=== PATIENT | female | born 1970 | race Caucasian/White ===

== ENCOUNTER 2018-07-15 20:03 | Emergency (ER) | payer BC ==
[~2018-07-15] VITALS: Ht 162.6 cm; Wt 85.3 kg
[~2018-07-15 20:03] MED LIST: FISH OIL; MULTIVITAMIN
--- OUTSIDE RECORDS SUMMARY | 2018-07-15 20:07 | XMS REPORT | Continuity of Care Document ---
Author Author [facility] Interface Address Unknown Phone Unavailable Problems Problem Status Onset Date Classification Date Reported Comments Source History of stress incontinence Active Problem 05/20/2015 [facility] Medications Medication Details Route Status Patient Instructions Ordering Provider Order Date Source acetaminophen IVPB 1,000 mg, Soln-IV, IV Piggyback, Once, infuse over 15 minutes, first dose 05/18/15 12:00:00 CDT, stop date 05/18/15 12:00:00 CDTMax 4gm acetaminophen in 24 hours Inactive Montes 05/18/2015 [facility] lidocaine 1% injectable solution 0.5 mL, Injection, Subcutaneous, Once, first dose 05/18/15 12:00:00 CDT, stop date 05/18/15 12:00:00 CDT Inactive [place] 05/18/2015 [facility] clindamycin 600 mg, IV Piggyback, Once, infuse over 30 minutes, first dose 05/18/15 12:00:00 CDT, stop date 05/18/15 12:00:00 CDT, Prophylaxis Inactive Thomason 05/18/2015 [facility] LR 1,000 mL 1,000 mL, IV, 100 mL/hr, start date 05/18/15 11:22:00 CDT, For Adults Inactive [place] 05/18/2015 [facility] ondansetron 4 mg=2 mL, Injection, IV Push, q30min PRN for nausea/vomiting, order duration: 2 doses, first dose 05/18/15 11:17:00 CDT, stop date Limited # of times Inactive [facility] 05/18/2015 [facility] labetalol 5 mg=1 mL, Injection, IV Push, q5min PRN for hypertension, order duration: 4 doses, first dose 05/18/15 11:17:00 CDT, stop date Limited # of times Inactive Montes 05/18/2015 [facility] morphine 2 mg=0.2 mL, Injection, IV Push, q5min PRN for pain severe (7-10), order duration: 5 doses, first dose 05/18/15 11:17:00 CDT, stop date Limited # of times Inactive Montes 05/18/2015 [facility] Allergies, Adverse Reactions, Alerts Substance Category Reaction Severity Reaction type Status Date Reported Comments Source Keflex drug allergy Anaphylaxis (disorder) Allergy [facility] Latex drug allergy Allergy [facility] Immunizations Immunization Date Given Site Status Last Updated Comments Source Results Order Name Results Value Reference Range Date Interpretation Comments Source LABORATORY Hematocrit 38.0 % 36.0 - 48.0 05/15/2015 1Reference Lab: [facility], [address] [place] [address] LABORATORY Hemoglobin 12.3 g/dL 12.0 - 16.0 05/15/2015 2Reference Lab: [facility], [address] [place] [address] LABORATORY Results Reported (05/15/2015 14:55:00) 05/15/2015 [facility] Vital Signs Vital Sign Value Date Comments Source Heart Rate 80 05/18/2015 [facility] Systolic (mm Hg) <content ID='[id number]'>120</content>/<content ID='[id number]'>70</content> 05/18/2015 [facility] Respitory Rate 16 05/18/2015 [facility] Heart Rate 83 05/18/2015 [facility] Respitory Rate 7 05/18/2015 [facility] Systolic (mm Hg) <content ID='[id number]'>130</content>/<content ID='[id number]'>83</content> 05/18/2015 [facility] Heart Rate 73 05/18/2015 [facility] Respitory Rate 14 05/18/2015 [facility] Systolic (mm Hg) <content ID='[id number]'>121</content>/<content ID='[id number]'>76</content> 05/18/2015 [facility] Temperature Oral (F) 36.8 Marianela 05/18/2015 [facility] Height 163 cm 05/15/2015 [facility] Weight 28.23 05/15/2015 [facility] Peripheral Pulse Rate 74 05/15/2015 [facility] Weight 75.0 05/15/2015 [facility] Temperature Oral (F) 36.7 Marianela 05/15/2015 [facility] Encounters Location Location Details Encounter Type Encounter Number Reason For Visit Attending Provider ADM Date DC Date Status Source [facility] Outpatient [id number] Yodit Thomason 05/18/2015 05/18/[address] [facility] Procedures Procedure Code Date Perfomer Comments Source bladder sling [facility] Cholecystectomy [id number] [facility] gastric bypass [facility] hysterectomy [facility] plastic surgery [facility]
--- OUTSIDE RECORDS SUMMARY | 2018-07-15 20:07 | XMS REPORT | CCD ---
Author Author Auto Generated Organization [facility] Address Unknown Phone Unavailable Care Team Providers Care Anesthesiology Technologist Name Role Phone Yodit Thomason CP [phone] Allergies, Adverse Reactions, Alerts Substance Reaction Status Keflex Anaphylactic reaction Active Latex Active Problem List Condition Effective Dates Status History of stress incontinence Active Medications Medication Instructions Start Date End Date Status ondansetron 4 mg=2 mL, Injection, IV Push, 05/18/2015 05/18/2015 Discontinued q30min PRN for nausea/vomiting, order duration: 2 doses, first dose 05/18/15 11:17:00 CDT, stop date Limited # of times labetalol 5 mg=1 mL, Injection, IV Push, 05/18/2015 05/18/2015 Discontinued q5min PRN for hypertension, order duration: 4 doses, first dose 05/18/15 11:17:00 CDT, stop date Limited # of times morphine 2 mg=0.2 mL, Injection, IV Push, 05/18/2015 05/18/2015 Discontinued q5min PRN for pain severe (7-10), order duration: 5 doses, first dose 05/18/15 11:17:00 CDT, stop date Limited # of times acetaminophen IVPB 1,000 mg, Soln-IV, IV Piggyback, 05/18/2015 05/18/2015 Ordered Once, infuse over 15 minutes, first dose 05/18/15 12:00:00 CDT, stop date 05/18/15 12:00:00 CDTMax 4gm acetaminophen in 24 hours lidocaine 1% 0.5 mL, Injection, Subcutaneous, 05/18/2015 05/18/2015 Completed injectable solution Once, first dose 05/18/15 12:00:00 CDT, stop date 05/18/15 12:00:00 CDT LR 1,000 mL 1,000 mL, IV, 100 mL/hr, start date 05/18/2015 05/18/2015 Discontinued 05/18/15 11:22:00 CDT, For Adults clindamycin 600 mg, IV Piggyback, Once, infuse 05/18/2015 05/18/2015 Ordered over 30 minutes, first dose 05/18/15 12:00:00 CDT, stop date 05/18/15 12:00:00 CDT, Prophylaxis Vital Signs Most recent to oldest [Reference Range]: 1 2 3 Temperature Oral [35.8-37.3 DegC] 36.7 DegC (05/15/2015 14:39:00) Temperature Tympanic [36.6-38.1 DegC] 36.8 DegC (05/18/2015 12:30:00) Temperature Tympanic Fahrenheit 98.24 (05/18/2015 12:30:00) Peripheral Pulse Rate [55-105 bpm] 74 bpm (05/15/2015 14:39:00) Heart Rate Monitored [60-100 bpm] 80 bpm (05/18/2015 13:00:00) 83 bpm (05/18/2015 12:45:00) 73 bpm (05/18/2015 12:40:00) Respiratory Rate [12-20] 16 (05/18/2015 13:00:00) 7 *LOW* (05/18/2015 12:45:00) 14 (05/18/2015 12:40:00) SpO2 [90-100 %] 98 % (05/18/2015 13:00:00) 99 % (05/18/2015 12:45:00) 99 % (05/18/2015 12:40:00) Blood Pressure [110-120/65-85 mmHg] <content ID='[id number]'>120</content>/<content ID='[id number]'>70</content> mmHg (05/18/2015 13:00:00) <content ID='[id number]'>130</content>/<content ID='[id number]'>83</content> mmHg *HI* (05/18/2015 12:45:00) <content ID='[id number]'>121</content>/<content ID='[id number]'>76</content> mmHg *HI* (05/18/2015 12:40:00) Mean Arterial Pressure, Cuff 86.7 mmHg (05/18/2015 13:00:00) 98.7 mmHg (05/18/2015 12:45:00) 91 mmHg (05/18/2015 12:40:00) Most recent to oldest [Reference Range]: 1 2 3 Height 163 cm (05/15/2015 14:39:00) Height/Length Dosing 163 cm (05/15/2015 14:39:00) Height Inches 64 in (05/15/2015 14:39:00) Weight 75.0 kg (05/15/2015 14:39:00) Weight Dosing 75 kg (05/15/2015 14:39:00) Weight Pounds 165 lb (05/15/2015 14:39:00) Body Mass Index 28.23 kg/m2 (05/15/2015 14:39:00) Results LABORATORY Most recent to oldest [Reference Range]: 1 Results Reported (05/15/2015 14:55:00) Hemoglobin [12.0-16.0 gm/dL] 12.3 gm/dL 2 *NA* (05/15/2015 14:55:00) Hematocrit [36.0-48.0 %] 38.0 % 1 *NA* (05/15/2015 14:55:00) 1Reference Lab: [facility], [address] [id number] 2Reference Lab: [facility], [id number] [place] [address] Procedures Procedures Date Related Diagnosis bladder sling Cholecystectomy gastric bypass hysterectomy plastic surgery
[2018-07-15] MEDS ORDERED: ACETAMINOPHEN 325 MG TAB ONE (20:51)
[2018-07-15] MEDS ORDERED: ONDANSETRON HCL 4 MG ORAL DISINTEGRATING TAB ONE (20:51)
[2018-07-15] MEDS ORDERED: ACETAMINOPHEN 325 MG TAB PO ONE (21:00)
[2018-07-15] MEDS ORDERED: ONDANSETRON HCL 4 MG ORAL DISINTEGRATING TAB PO ONE (21:00)
== END 2018-07-15 22:36 | disposition left against medical advice (07) ==
LOC: ER 20:03
DX: R11.0 Nausea (principal)